=== PATIENT | female | born 1980 ===

== ENCOUNTER 2021-02-24 10:41 | Inpatient (IN) | payer SELFPAY ==
[2021-02-24] MEDS ORDERED: SODIUM CHLORIDE 0.9% 1000 ML 1,000 ML IV ONE ×2 (10:52)
--- NOTE | 2021-02-24 10:57 | Emergency Department Report ---
HPI - General Chief Complaint: Syncope Time Seen by Provider: 02/24/21 10:49 - [facility] HPI: Charge nurse triage The patient is a 40-year-old female present with a chief complaint of syncope. Patient has a history of heavy cycles states for the past 3 months she has had intermittent heavy vaginal bleeding. Patient is on oral contraceptives and states 02/21/2021 she had heavy vaginal bleeding going through approximately 1 pad per hour. The following day the bleeding stopped however returned yesterday and the patient begins going through approximately 1 pad every hour. Today the patient stood up to go to the bathroom and became dizzy with blurred vision and had a syncopal episode. Patient complains of nausea. EMS was called and found the patient hypotensive to 98/68 with a heart rate of 118. ED Past Medical Hx - Past Medical History Hx Hypertension: Yes - Surgical History Past Surgical History?: No - Family History Family history: no significant - Social History Smoking Status: Never Smoker Substance Use Type: None ED Review of Systems ROS: Stated complaint: SYNCOPE/HEAVY BLEEDING Other details as noted in HPI Constitutional: no symptoms reported Eyes: vision change ENT: denies: throat pain Respiratory: no symptoms reported Cardiovascular: denies: chest pain Endocrine: no symptoms reported Gastrointestinal: denies: abdominal pain Genitourinary: abnormal menses. denies: dysuria Musculoskeletal: denies: back pain Neurological: denies: headache Physical Exam - Physical Exam Physical Exam: GENERAL: The patient is well-developed well-nourished female lying on stretcher not appearing to be in acute distress. [] HEENT: Normocephalic. Atraumatic. Extraocular motions are intact. Patient has moist mucous membranes. NECK: Supple. Trachea midline CHEST/LUNGS: Clear to auscultation. There is no respiratory distress noted. HEART/CARDIOVASCULAR: Regular. There is tachycardia. There is no gallop rub or murmur. ABDOMEN: Abdomen is soft, nontender. Patient has normal bowel sounds. There is no abdominal distention. SKIN: There is no rash. There is no edema. There is no diaphoresis. NEURO: The patient is awake, alert, and oriented. The patient is cooperative. The patient has no focal neurologic deficits. The patient has normal speech. GCS 15 MUSCULOSKELETAL: There is no evidence of acute injury. PELVIC: Moderate to large amount of blood clots present in the vault. Moderate vaginal bleeding ED Course - Consultations Consultation #1: 02/24/21 14:43 Case discussed with MIXING HOUSE OPERATOR Dr. Field. Will admit ED Medical Decision Making - Lab Data Result diagrams: 02/24/21 11:01 02/24/21 11:01 Laboratory Tests 02/24/21 02/24/21 02/24/21 11:01 11:01 11:01 WBC 7.3 RBC 2.52 L Hgb 6.1 L Hct 20.0 L MCV 80 MCH 24 L MCHC 31 RDW 14.6 Plt Count 170 Lymph % (Auto) 16.7 [place] % (Auto) 5.5 Eos % (Auto) 0.5 Baso % (Auto) 0.1 Lymph # (Auto) 1.2 [place] # (Auto) 0.4 Eos # (Auto) 0.0 Baso # (Auto) 0.0 Seg Neutrophils % 77.2 H Seg Neutrophils # 5.7 PT 14.3 INR 1.00 APTT 21.1 L Sodium 138 Potassium 3.5 L Chloride 104.6 Carbon Dioxide 18 L Anion Gap 19 BUN 13 Creatinine 0.6 Estimated GFR > 60 BUN/Creatinine Ratio 22 Glucose 149 H Calcium 7.9 L HCG, Qual Blood Type Antibody Screen Crossmatch 02/24/21 02/24/21 11:01 11:01 WBC RBC Hgb Hct MCV MCH MCHC RDW Plt Count Lymph % (Auto) [place] % (Auto) Eos % (Auto) Baso % (Auto) Lymph # (Auto) [place] # (Auto) Eos # (Auto) Baso # (Auto) Seg Neutrophils % Seg Neutrophils # PT INR APTT Sodium Potassium Chloride Carbon Dioxide Anion Gap BUN Creatinine Estimated GFR BUN/Creatinine Ratio Glucose Calcium HCG, Qual Negative Blood Type O POSITIVE Antibody Screen Negative Crossmatch See Detail - Radiology Data Radiology results: report reviewed (Pelvic ultrasound), image reviewed (Pelvic ultrasound) [facility] [address] [place] [address] Ultrasound Report Signed Patient: MARIA A PARKER MR#: [id number] 3 : 1980 Acct:[id number] Age/Sex: 40 / F ADM Date: 02/24/21 Loc: ED Attending Dr: Ordering Physician: DEEPTI BARNARD MD Date of Service: 02/24/21 Procedure(s): US pelvic complete Accession Number(s): [id number] cc: DEEPTI BARNARD MD Pelvic ultrasound with Doppler INDICATION: Heavy vaginal bleeding FINDINGS: Uterus measures 9 x 4 x 6 cm. Endometrial complex is thickened at approximately 20 mm. The right ovary is normal. The left ovary contains a 1 cm cystic lesion. There is minimal free pelvic fluid. IMPRESSION: Abnormal endometrial thickness measuring 20 mm in thickness. Signer Name: Daren Carrillo MD Signed: 02/24/2021 2:24 PM Workstation Name: [id number] Transcribed By: BC Dictated By: Daren Carrillo MD Electronically Authenticated By: Daren Carrillo MD Signed Date/Time: 02/24/211423 DD/ 22 TD/TT: Print Cancel - Differential Diagnosis Metromenorrhagia, syncope, symptomatic anemia Critical care attestation.: If time is entered above; I have spent that time in minutes in the direct care of this critically ill patient, excluding procedure time. ED Disposition Clinical Impression: Menorrhagia, Symptomatic anemia, Syncope Disposition: 09 ADMITTED INPATIENT Is pt being admited?: Yes Does the pt Need Aspirin: No Condition: Fair Instructions: Syncope (ED) Referrals: PRIMARY CARE, [Primary Care Provider] - 3-5 Days Time of Disposition: 14:44 (Patient admitted to mother-baby)
[2021-02-24 11:12] LABS: Basophils % (Auto) 0.1 % (0.0-1.8); Eosinophils % (Auto) 0.5 % (0.0-4.3); Hemoglobin 6.1 gm/dl (10.1-14.3); Lymphocytes # (Auto) 1.2 K/mm3 (1.2-5.4); Lymphocytes % (Auto) 16.7 % (13.4-35.0); Mean Corpuscular HGB Conc 31 % (30-34); Mean Corpuscular Volume 80 fl (79-97); Monocytes # (Auto) 0.4 K/mm3 (0.0-0.8); Monocytes % (Auto) 5.5 % (0.0-7.3); Platelet Count 170 K/mm3 (140-440); Red Blood Count 2.52 M/mm3 (3.65-5.03); Red Cell Distribution Width 14.6 % (13.2-15.2)
[2021-02-24 11:32] LABS: Blood Urea Nitrogen 13 mg/dL (7-17); Calcium 7.9 mg/dL (8.4-10.2); Hemolysis Index 0
[2021-02-24 11:34] LABS: BUN/Creatinine Ratio 22
[2021-02-24 11:38] LABS: Partial Thromboplastin Time 21.1 Sec. (24.2-36.6)
[2021-02-24] MEDS ORDERED: SODIUM CHLORIDE 0.9% 500 ML 500 ML IV ONE (12:45)
--- NOTE | 2021-02-24 14:28 | Ultrasound Report ---
Pelvic ultrasound with Doppler INDICATION: Heavy vaginal bleeding FINDINGS: Uterus measures 9 x 4 x 6 cm. Endometrial complex is thickened at approximately 20 mm. The right ovary is normal. The left ovary contains a 1 cm cystic lesion. There is minimal free pelvic flu id. IMPRESSION: Abnormal endometrial thickness measuring 20 mm in thickness. Signer Name: Daren Carrillo MD Signed: 02/24/2021 2:24 PM Workstation Name: [id number]
[2021-02-24] MEDS ORDERED: MAGNESIUM HYDROXIDE (MOM) ORAL LIQD UDC PO PRN (15:14)
[2021-02-24] MEDS ORDERED: ACETAMINOPHEN 325 MG TAB PO PRN (15:14)
[2021-02-24] MEDS ORDERED: ONDANSETRON 4 MG/2 ML INJ IV PRN (15:14)
[2021-02-24] MEDS ORDERED: diphenhydrAMINE 25 MG CAP PO PRN (15:14)
[2021-02-24] MEDS ORDERED: HYDROcodone/ACETAMINOPHEN 5-325 MG TAB PO PRN (15:14)
[2021-02-24] MEDS ORDERED: PROMETHAZINE 25 MG TAB PO PRN (15:14)
[2021-02-24] MEDS ORDERED: PROMETHAZINE 25 MG RECT SUPP PR PRN (15:14)
[2021-02-24] MEDS ORDERED: SODIUM CHLORIDE 0.9% 500 ML 500 ML IV NR (15:16)
--- NOTE | 2021-02-24 15:18 | History and Physical Report ---
History of Present Illness Date of examination: 02/24/21 Date of admission: 02/24/21 Chief complaint: syncope meorrhagia severe anemia History of present illness: -intermittent DUB over the last few months -has tried OCPS -had near syncope this AM, was brought in by EMS in hypovolemic shock with heavy vaginal bleeding. Past History Past Medical History: hypertension Past Surgical History: no surgical history Medications and Allergies Allergies Allergy/AdvReac Type Severity Reaction Status Date / Time No Known Allergies Allergy Unverified 02/24/21 10:45 Active Meds: Active Medications Acetaminophen (Acetaminophen 325 Mg Tab) 650 mg PO Q4H PRN PRN Reason: Pain MILD(1-3)/Fever >100.5/AKERS Hydrocodone Bitart/Acetaminophen (Hydrocodone/Acetaminophen 5-325 Mg Tab) 2 each PO Q6H PRN PRN Reason: Pain, Moderate (4-6) Diphenhydramine HCl (Diphenhydramine 25 Mg Cap) 25 mg PO Q6H PRN PRN Reason: Itching Ibuprofen (Ibuprofen 600 Mg Tab) 600 mg PO Q6H PANCHO Magnesium Hydroxide (Magnesium Hydroxide (Mom) Oral Liqd Udc) 30 ml PO HS PRN PRN Reason: Constipation Ondansetron HCl (Ondansetron 4 Mg/2 Ml Inj) 4 mg IV Q8H PRN PRN Reason: Nausea And Vomiting Promethazine HCl (Promethazine 25 Mg Rect Supp) 25 mg PA Q6H PRN PRN Reason: Nausea And Vomiting Promethazine HCl (Promethazine 25 Mg Tab) 25 mg PO Q6H PRN PRN Reason: Nausea And Vomiting Sodium Chloride (Sodium Chloride 0.9% 10 Ml Flush Syringe) 10 ml IV PRN NR - Vital Signs Vital signs: Vital Signs Pulse Ox 100 02/24/21 10:57 Temp Pulse Resp BP Pulse Ox 16 94/50 100 02/24/21 13:29 02/24/21 13:31 02/24/21 13:31 - Physical Exam Breasts: Positive: deferred Cardiovascular: Normal S1, Normal S2 Lungs: Positive: Clear to auscultation Abdomen: Positive: normal appearance, soft, normal bowel sounds Genitourinary (Female): Positive: normal external genitalia, normal perenium Vagina: Positive: other (moderate vaginal bleeding) Uterus: Positive: normal size Adnexa: both: normal Anus/Rectum: Positive: normal perianal skin Extremities: Positive: normal Deep Tendon Reflex Grade: Normal +2 Results Result Diagrams: 02/24/21 11:02/24/21 11: Abnormal lab results 02/24/21 02/24/21 02/24/21 Range/Units 11: 11: 11: RBC 2.52 L (3.65-5.03) M/mm3 Hgb 6.1 L (10.1-14.3) gm/dl Hct 20.0 L (30.3-42.9) % MCH 24 L (28-32) pg Seg Neutrophils % 77.2 H (40.0-70.0) % APTT 21.1 L (24.2-36.6) Sec. Potassium 3.5 L (3.6-5.0) mmol/L Carbon Dioxide 18 L (22-30) mmol/L Glucose 149 H (65-100) mg/dL Calcium 7.9 L (8.4-10.2) mg/dL Crossmatch 02/24/21 Range/Units 11:01 RBC (3.65-5.03) M/mm3 Hgb (10.1-14.3) gm/dl Hct (30.3-42.9) % MCH (28-32) pg Seg Neutrophils % (40.0-70.0) % APTT (24.2-36.6) Sec. Potassium (3.6-5.0) mmol/L Carbon Dioxide (22-30) mmol/L Glucose (65-100) mg/dL Calcium (8.4-10.2) mg/dL Crossmatch See Detail All other labs normal. Ultrasound: image reviewed Assessment and Plan admission transfusion conjugated estrogen IV fluids monitor closely. Francesca Field MD
[2021-02-24] MEDS: IBUPROFEN 600 MG TAB PO SCH ×2 (16:11→23:13)
[2021-02-24] MEDS ORDERED: FAMOTIDINE 20 MG/2 ML INJ IV ONE (17:49)
[2021-02-24] MEDS ORDERED: WATER FOR INJ Sterile (PF) 10 ML ONE ×2 (18:05→21:16)
[2021-02-24] MEDS: ESTROGENS, CONJUGATED 25 MG INJ IV SCH ×2 (18:21→23:13)
[2021-02-24] MEDS ORDERED: FLU VACC QUAD 2021-22(6MOS UP)/PF 60 MCG/0.5 ML SYRINGE IM ONE (20:00)
[2021-02-25] MEDS ORDERED: WATER FOR INJ Sterile (PF) 10 ML ONE ×2 (04:28→08:49)
[2021-02-25] MEDS: ESTROGENS, CONJUGATED 25 MG INJ IV SCH ×3 (04:33→14:05)
[2021-02-25 04:40] LABS: Hemoglobin 8.3 gm/dl (10.1-14.3)
[2021-02-25] MEDS: IBUPROFEN 600 MG TAB PO SCH ×2 (06:08→10:38)
--- NOTE | 2021-02-25 09:20 | Progress Note ---
Assessment and Plan Abnormal uterine bleeding that is responding well to IV estrogen 1. Repeat cbc this am and if stable discharge home after 24hrs of IV estrogen later this pm 2. Will give combine ocp for 1month and follow up in office with Dr. Field in 3-5days Pt counseled no sex. Subjective Date of service: 02/25/21 Principal diagnosis: HD#2, Abnormal Uterine bleeding Interval history: Pt has no complaints and states bleeding now scant, denies headache or chest pain or calf pain. Pt tolerates diet and ambulates in the room without dizziness. Pt has received 3units of PRBC Objective - Constitutional Vitals: Vital Signs - 12hr 02/24/21 02/24/21 02/24/21 21:44 21:46 22:18 Temperature 98.8 F 98.5 F Pulse Rate 102 H 100 H Respiratory 16 16 Rate Blood Pressure 94/55 93/49 Blood Pressure [Right] O2 Sat by Pulse 100 99 Oximetry 02/24/21 02/24/21 02/24/21 22:50 22:53 23:55 Temperature 98.4 F Pulse Rate 105 H 100 H Respiratory 18 Rate Blood Pressure 103/49 115/55 Blood Pressure [Right] O2 Sat by Pulse 99 99 Oximetry 02/24/21 02/25/21 02/25/21 23:56 00:17 00:56 Temperature 99.5 F 98.3 F 99.2 F Pulse Rate 101 H 95 H Respiratory 18 18 18 Rate Blood Pressure 108/58 Blood Pressure 97/53 [Right] O2 Sat by Pulse 99 97 Oximetry 02/25/21 02/25/21 02/25/21 00:57 01:37 02:10 Temperature 98.8 F Pulse Rate 100 H 104 H 98 H Respiratory 18 16 18 Rate Blood Pressure 97/53 106/56 100/53 Blood Pressure [Right] O2 Sat by Pulse 97 98 99 Oximetry 02/25/21 02/25/21 02/25/21 02:54 02:55 03:35 Temperature 98.5 F 98.4 F Pulse Rate 95 H 95 H Respiratory 16 18 Rate Blood Pressure 94/50 Blood Pressure 103/54 [Right] O2 Sat by Pulse 98 99 Oximetry 02/25/21 02/25/21 04:14 07:50 Temperature 98.9 F 97.9 F Pulse Rate 97 H 94 H Respiratory 18 18 Rate Blood Pressure 104/62 91/47 Blood Pressure [Right] O2 Sat by Pulse 99 97 Oximetry General appearance: Present: no acute distress - Respiratory Respiratory effort: normal - Breasts Breasts: deferred - Cardiovascular Rhythm: regular Extremities: No edema - Genitourinary Female genitourinary: other (perineal pad with scant dark red blood without clots) - Neurologic Neurologic: moves all extremities - Psychiatric Psychiatric: cooperative - Labs CBC & Chem 7: 02/25/21 04:11 02/24/21 11:01 Labs: Abnormal lab results 02/24/21 02/24/21 02/24/21 Range/Units 11: 11: 11:01 RBC 2.52 L (3.65-5.03) M/mm3 Hgb 6.1 L (10.1-14.3) gm/dl Hct 20.0 L (30.3-42.9) % MCH 24 L (28-32) pg Seg Neutrophils % 77.2 H (40.0-70.0) % APTT 21.1 L (24.2-36.6) Sec. Potassium 3.5 L (3.6-5.0) mmol/L Carbon Dioxide 18 L (22-30) mmol/L Glucose 149 H (65-100) mg/dL Calcium 7.9 L (8.4-10.2) mg/dL Crossmatch 02/24/21 02/25/21 Range/Units 11:01 04:11 RBC (3.65-5.03) M/mm3 Hgb 8.3 L (10.1-14.3) gm/dl Hct 26.0 L D (30.3-42.9) % MCH (28-32) pg Seg Neutrophils % (40.0-70.0) % APTT (24.2-36.6) Sec. Potassium (3.6-5.0) mmol/L Carbon Dioxide (22-30) mmol/L Glucose (65-100) mg/dL Calcium (8.4-10.2) mg/dL Crossmatch See Detail Medications & Allergies - Medications Allergies/Adverse Reactions: Allergies No Known Allergies Allergy (Unverified 02/24/21 10:45) Active Medications: Generic Name Dose Route Start Last Admin Trade Name Freq PRN Reason Stop Dose Admin Acetaminophen 650 mg 02/24/21 15:14 Acetaminophen 325 Mg Tab PO Q4H PRN Pain MILD(1-3)/Fever >100.5/AKERS Hydrocodone Bitart/Acetaminophen 2 each 02/24/21 15:14 Hydrocodone/Acetaminophen 5-325 Mg Tab PO Q6H PRN Pain, Moderate (4-6) Diphenhydramine HCl 25 mg 02/24/21 15:14 Diphenhydramine 25 Mg Cap PO Q6H PRN Itching Estrogens Conjugated 25 mg 02/24/21 18:00 02/25/21 09:13 Estrogens, Conjugated 25 Mg Inj IV 02/26/21 17:59 25 mg Q4HR PANCHO Administration Ibuprofen 600 mg 02/24/21 16:00 02/25/21 06:08 Ibuprofen 600 Mg Tab PO Not Given Q6H PANCHO Magnesium Hydroxide 30 ml 02/24/21 15:14 Magnesium Hydroxide (Mom) Oral Liqd Udc PO HS PRN Constipation Ondansetron HCl 4 mg 02/24/21 15:14 Ondansetron 4 Mg/2 Ml Inj IV Q8H PRN Nausea And Vomiting Promethazine HCl 25 mg 02/24/21 15:14 Promethazine 25 Mg Rect Supp ND Q6H PRN Nausea And Vomiting Promethazine HCl 25 mg 02/24/21 15:14 Promethazine 25 Mg Tab PO Q6H PRN Nausea And Vomiting
[2021-02-25 16:15] VITALS: BP 90/50
[2021-02-25 16:42] LABS: Basophils # (Auto) 0.1 K/mm3 (0.0-0.1); Basophils % (Auto) 0.5 % (0.0-1.8); Eosinophils # (Auto) 0.2 K/mm3 (0.0-0.4); Eosinophils % (Auto) 2.2 % (0.0-4.3); Hematocrit 26.2 % (30.3-42.9); Hemoglobin 8.5 gm/dl (10.1-14.3); Lymphocytes # (Auto) 2.3 K/mm3 (1.2-5.4); Lymphocytes % (Auto) 24.6 % (13.4-35.0); Mean Corpuscular HGB Conc 33 % (30-34); Mean Corpuscular Volume 82 fl (79-97); Monocytes # (Auto) 0.6 K/mm3 (0.0-0.8); Monocytes % (Auto) 6.4 % (0.0-7.3); Platelet Count 148 K/mm3 (140-440); Red Blood Count 3.19 M/mm3 (3.65-5.03); Red Cell Distribution Width 15.5 % (13.2-15.2)
[2021-02-25] MEDS ORDERED: DOCUSATE SODIUM 100 MG CAP PO PRN (16:59)
--- NOTE | 2021-02-25 17:10 | Discharge Summary ---
Providers - Providers Date of Admission: 02/24/21 15:14 Date of discharge: 02/25/21 Attending physician: LIEN SOUZA MD Primary care physician: FLEX O WRITER OPERATOR Hospitalization Reason for admission: other (Menorrhagia and symptomatic anemia) Discharge diagnosis: other (menorrhagia, asymptomatic anemia s/p blood transfusion) Hospital course: phosphoric acid supervisor pt admitted from ER with menorrhagia, transfused 3units of PRBC and given IV estrogen with good response. Pt given combined ocp and follow up in clinic with thick EMS. Pt also given iron supplement. hgb 8.5 and platelets 148 with scant vag bleed on perineal pad. Signs of symptomatic anemia given and pt to follow up in clinic in 3-5days. Thickened EMS on u/s noted and normal size uterus and adnexa with unilateral small ovarial cyst. Condition at discharge: Fair Disposition: 01 HOME / SELF CARE / HOMELESS - Discharge Diagnoses (1) Menorrhagia Status: Acute Plan - Discharge Medications Prescriptions: Docusate Sodium [Colace] 100 mg PO BID PRN 30 Days #60 capsule PRN Reason: Constipation Ferrous Sulfate [Ferrous Sulfate 324 MG] 324 mg PO BID 30 Days #60 tablet. Norgestimate-Ethinyl Estradiol [Ortho Tri-Cyclen 28 Tablet] 1 each PO DAILY 28 Days #28 tablet Ascorbic Acid [Vitamin C] 0 mg PO BID 30 Days #60 tablet - Provider Discharge Summary Activity: no sex for 6 weeks Diet: routine Additional instructions: [] Smoking cessation referral if applicable(refer to patient education folder for contact #) [] Refer to [facility] Booklet Call your doctor immediately for: * Fever > 100.5 * Heavy vaginal bleeding ( >1 pad per hour) * Severe persistent headache * Shortness of breath * Reddened, hot, painful area to leg or breast * Drainage or odor from incision. * Keep incision clean and dry at all times and follow doctor's instructions regarding bathing/showering - Follow up plan Follow up: LIEN SOUZA MD [Staff Physician] - 7 Days Forms: [facility] Discharge Summary
== END 2021-02-25 18:05 | disposition home or self-care (01) | DRG 761 ==
LOC: EDBD → ED 10:41 → OB 14:42 → OBSVTOIN 15:14
PROVIDERS: ADMIT Obstetrics & Gynecology; ATTEND Obstetrics & Gynecology
PROC: 30233N1 Transfusion of Nonautologous Red Blood Cells into Peripheral Vein, Percutaneous Approach (ICD-10-PCS; principal; 2021-02-24)
DX: N92.0 Excessive and frequent menstruation with regular cycle (principal); D64.9 Anemia, unspecified; N93.9 Abnormal uterine and vaginal bleeding, unspecified; N83.209 Unspecified ovarian cyst, unspecified side; Z20.822 Contact with and (suspected) exposure to COVID-19
CPT/HCPCS: 36415; 76856; 80048; 84703; 85014; 85018; 85025; 85610; 85730; 86850; 86900; 86901; 86920; G0378; Q0162; J1410; J7030; J7040; P9016; U0003